=== PATIENT | male | born 1980 | race American Indian/Alaskan Native ===

== ENCOUNTER 2017-03-30 18:15 | Emergency (ER) | payer SELFPAY ==
[2017-03-30] MEDS ORDERED: MOTRIN PO ONE (18:54)
--- NOTE | 2017-03-30 18:57 | Emergency Department Report ---
Chief Complaint: Fever Stated Complaint: BODY PAIN/WEAKNESS Time Seen by Provider: 03/30/17 18:52 - HPI History of Present Illness: PT c/o bodyaches that started today. PT c/o L testicle discomfort x 1-2 weeks - ROS Review of Systems: pt found to be febrile in triage pt denies Scrotal swelling pt denies dysuria + vomiting x 1 + bodyaches - Exam Physical Exam: pt looks well, non toxic. pt is febrile. abd is soft and not tender no cva tenderness adria MSE screening note: Focused history and physical exam performed. Due to findings the following was ordered: meds, labs ED Disposition for MSE Condition: Stable
[2017-03-30 19:50] LABS: Hematocrit 48.8 % (35.5-45.6); Hemoglobin 16.3 gm/dl (11.8-15.2); Mean Corpuscular HGB Conc 33 % (32-34); Mean Corpuscular Hemoglobin 31 pg (28-32); Mean Corpuscular Volume 91 fl (84-94); Platelet Count 171 K/mm3 (140-440); Red Blood Count 5.36 M/mm3 (3.65-5.03); Red Cell Distribution Width 13.6 % (13.2-15.2); White Blood Count 16.8 K/mm3 (4.5-11.0)
[2017-03-30 20:05] LABS: Alanine Aminotransferase 24 units/L (7-56); Albumin 4.6 g/dL (3.9-5); Albumin/Globulin Ratio 1.4 %; Alkaline Phosphatase 57 units/L (35-129); Anion Gap 20 mmol/L; BUN/Creatinine Ratio 18.57; Blood Urea Nitrogen 26 mg/dL (9-20); Calcium 9.3 mg/dL (8.4-10.2); Carbon Dioxide 27 mmol/L (22-30); Chloride 97.6 mmol/L (98-107); Glucose 130 mg/dL (75-100); Potassium 3.5 mmol/L (3.6-5.0); Sodium 141 mmol/L (137-145)
[2017-03-30 20:33] LABS: Basophils % (Manual) 0 % (0.0-1.8); Blastocytes % (Manual) 0 %; Eosinophils % (Manual) 0 % (0.0-4.3)
[2017-03-30 20:34] LABS: Anisocytosis Few; Diff Status Complete; Poikilocytosis Few
[2017-03-30 22:23] LABS: Bilirubin,Urine NEG (Negative); Blood,Urine NEG (Negative); Ketones,Urine NEG (Negative); Leukocyte Esterase,Urine NEG (Negative); Mucus,Urine 2+ /HPF; Nitrite,Urine NEG (Negative); Protein,Urine <15 mg/dL mg/dL (Negative); WBC,Urine < 1.0 /HPF (0.0-6.0)
--- NOTE | 2017-03-31 01:23 | Ultrasound Report ---
FINAL REPORT PROCEDURE: US TESTICULAR DOPPLER COMP TECHNIQUE: Real-time powers-scale and color flow Doppler sonography in multiple planes of the scrotum, testicles, and epididymes was performed. Velocity spectral waveform analysis Doppler imaging of the arterial inflow and venous outflow of the testicles was performed with image documentation. CPT 77261 and 82575 HISTORY: left testicular pain COMPARISON: No prior studies are available for comparison. FINDINGS: RIGHT TESTICLE: Size: 4.5 x 2.9 x 3.1 cm . Appearance: Within the superior medial aspect of the right testicle there is some mixed echogenicity. A mass in this region is suspected. This measures 19 x 13 by 39 millimeters. The remaining right testicular echogenicity is normal.. Arterial blood flow: Normal spectral waveforms, flow velocities and color flow images.. Venous blood flow: Normal spectral waveforms and color flow images. Right epididymis: Normal size and echotexture . Hydrocele: None . LEFT TESTICLE Size: 5.1 x 2.6 x 3 cm . Appearance: Normal size and echotexture . Arterial blood flow: Normal spectral waveforms, flow velocities and color flow images.. Venous blood flow: Normal spectral waveforms and color flow images. Leftepididymis: Normal size and echotexture . Hydrocele: None . IMPRESSION: There is a mixed echogenic region in the superior medial aspect of the right testicle consistent with a mass, this measures 19 x 13 by 39 millimeters. The differential is extensive and further workup with specialty consultation should be obtained. The testicles have normal size with appropriate blood flow. The left testicle has a normal echogenicity. The above findings are discussed with the patient's ER provider Dr. Salgado, at the time of dictation 0017 central standard time on 03/31/2017
[2017-03-31] MEDS ORDERED: TYLENOL PO ONE (01:52)
--- NOTE | 2017-03-31 01:52 | Emergency Department Report ---
HPI - General Chief Complaint: Abdominal Pain Time Seen by Provider: 03/30/17 18:52 - HPI HPI: This is a 36-year-old -[place] male who presents to the emergency department with complaint of a 2 week history of some testicular pain. He denies any dysuria, hematuria, penile discharge, back pain, fever but he did have some nausea with 2 episodes of vomiting today. He has not taken anything for symptoms prior to presentation. He denies any past medical history. He does not have a primary care physician. No recent travel or sick contacts at home. ED Past Medical Hx - Past Medical History Previous Medical History?: No - Surgical History Past Surgical History?: Yes Additional Surgical History: right big toe - Social History Smoking Status: Current Every Day Smoker Substance Use Type: Alcohol - Medications Home Medications: Home Medications Medication Instructions Recorded Confirmed Last Taken Type Acetaminophen/Codeine [Tylenol #3] 1 tab PO Q6H PRN #20 tab 10/26/15 Unknown Rx Cyclobenzaprine [Flexeril] 10 mg PO TID PRN #30 tablet 10/26/15 Unknown Rx Ibuprofen [Motrin] 600 mg PO Q8H PRN #50 tablet 10/26/15 Unknown Rx HYDROcodone/APAP 5-325 [[place] 1 each PO Q6HR PRN #12 tablet 03/31/17 Unknown Rx 5/325] ED Review of Systems ROS: Stated complaint: BODY PAIN/WEAKNESS Other details as noted in HPI Comment: All other systems reviewed and negative Constitutional: denies: chills, fever Eyes: denies: eye pain, eye discharge, vision change ENT: denies: ear pain, throat pain Respiratory: denies: cough, shortness of breath, wheezing Cardiovascular: denies: chest pain, palpitations Gastrointestinal: nausea, vomiting Genitourinary: testicular pain. denies: dysuria Musculoskeletal: denies: back pain, joint swelling, arthralgia Skin: denies: rash, lesions Neurological: denies: headache, weakness, paresthesias Physical Exam - Physical Exam Vital Signs: Vital Signs 03/30/17 03/30/17 18:55 23:01 Temperature 100.9 F H 100.5 F H Pulse Rate 93 H 80 Respiratory 16 18 Rate Blood Pressure 143/107 Blood Pressure 154/99 [Right] O2 Sat by Pulse 99 100 Oximetry Physical Exam: GENERAL: The patient is well-developed well-nourished. HEENT: Normocephalic. Atraumatic. Extraocular motions are intact. Patient has moist mucous membranes. NECK: Supple. Trachea is midline. CHEST/LUNGS: Clear to auscultation. There is no respiratory distress noted. HEART/CARDIOVASCULAR: Regular. There is no tachycardia. There is no gallop rub or murmur. ABDOMEN: Abdomen is soft, nontender. Patient has normal bowel sounds. There is no abdominal distention. SKIN: Skin is warm and dry. NEURO: The patient is awake, alert, and oriented. The patient is cooperative. The patient has no focal neurologic deficits. The patient has normal speech. MUSCULOSKELETAL: There is no tenderness or deformity. There is no limitation range of motion. There is no evidence of acute injury. : Normal-appearing penis and scrotum and testicles. Unable to reproduce left testicular pain to palpation. ED Course Vital Signs 03/30/17 03/30/17 18:55 23:01 Temperature 100.9 F H 100.5 F H Pulse Rate 93 H 80 Respiratory 16 18 Rate Blood Pressure 143/107 Blood Pressure 154/99 [Right] O2 Sat by Pulse 99 100 Oximetry ED Medical Decision Making - Lab Data Result diagrams: 03/30/17 19:38 03/30/17 19:38 - Radiology Data Radiology results: report reviewed Testicular Doppler ultrasound shows a mixed echogenic region in the superior medial aspect of the right testicle consistent with a mass that measures 19 x 13 x 39 mm. The differential is extensive and further work up with specialty consultation should be obtained. The testicles are normal size with appropriate blood flow. The left Testicle has normal echogenicity. - Medical Decision Making 36-year-old male presents with a two-week history of testicular pain. He did not complain of any fever presented with a low-grade fever. Labs show a leukocytosis but otherwise the rest the labs are unremarkable. Urinalysis does not show any urinary tract infection. Due to his testicular pain and a testicular Doppler ultrasound was done that did not show any signs of torsion but did show some signs of a right testicular mass. The differential is large and the patient will require workup with urology. His fever resolved and his vital signs been stable throughout his ED course. All of the labs and imaging were discussed with the patient and he understands and agrees to the plan. - Differential Diagnosis torsion, testicular mass, urinary tract infection, urethritis, hernia Critical Care Time: No Critical care attestation.: If time is entered above; I have spent that time in minutes in the direct care of this critically ill patient, excluding procedure time. ED Disposition Clinical Impression: Testicular mass Disposition: DC- TO HOME OR SELFCARE Is pt being admited?: No Condition: Stable Instructions: Testicle Pain (ED) Additional Instructions: Please follow-up with a urologist as soon as possible for further evaluation of your testicular mass. Return to the emergency department with any worsening of your symptoms or any acute distress. I have given you a referral for a local urologist, Dr. Sol. You've been prescribed a medication that is sedating. Therefore this medication cannot be mixed with alcohol, or taken prior to driving, working, or being responsible for children. Prescriptions: HYDROcodone/APAP 5-325 [S [place] 5/325] 1 each PO Q6HR PRN #12 tablet PRN Reason: Pain Referrals: PRIMARY CAREMD [Primary Care Provider] - 3-5 Days DONOVAN SOL MD [Staff Physician] - 3-5 Days Forms: Work/School Release Form(ED) Time of Disposition: 02:31
[2017-03-31 02:00] VITALS: BP 129/79
== END 2017-03-31 02:48 | disposition home or self-care (01) ==
LOC: ED 18:15
DX: N50.9 Disorder of male genital organs, unspecified (principal); F17.200 Nicotine dependence, unspecified, uncomplicated
CPT/HCPCS: 36415; 80053; 81001; 85007; 85025; 93975

== ENCOUNTER 2018-07-12 08:18 | Emergency (ER) | payer SELFPAY ==
[2018-07-12 08:57] VITALS: BP 151/87
[2018-07-12] MEDS ORDERED: CLEOCIN PO ONE (13:10)
[2018-07-12] MEDS ORDERED: MOTRIN PO ONE (13:10)
--- NOTE | 2018-07-12 13:10 | Emergency Department Report ---
HPI - General Chief Complaint: Sore Throat Time Seen by Provider: 07/12/18 13:08 - HPI HPI: This is a 38-year-old male here report that he is having sore throat 1 week. Denies any drooling. Report fever and chills. Denies any cough, nasal congestion or runny nose. Denies any chest pain or shortness of breath. He states that he took [id number] Tylenol without any relief. Reports some nausea without any vomiting. Denies any abdominal pain or back pain. Denies any urinary symptoms .pain is 6 out of 10 achy worse with swallowing and no alleviating factors. ED Past Medical Hx - Past Medical History Previous Medical History?: No - Surgical History Past Surgical History?: Yes Additional Surgical History: right big toe - Family History Family history: hypertension - Social History Smoking Status: Current Every Day Smoker Substance Use Type: Alcohol, Marijuana - Medications Home Medications: Home Medications Medication Instructions Recorded Confirmed Last Taken Type Acetaminophen/Codeine [Tylenol #3] 1 tab PO Q6H PRN #20 tab 10/26/15 Unknown Rx Cyclobenzaprine [Flexeril] 10 mg PO TID PRN #30 tablet 10/26/15 Unknown Rx Ibuprofen [Motrin] 600 mg PO Q8H PRN #50 tablet 10/26/15 Unknown Rx HYDROcodone/APAP 5-325 [[place] 1 each PO Q6HR PRN #12 tablet 03/31/17 Unknown Rx 5/325] Clindamycin [Clindamycin CAP] 300 mg PO Q8H 10 Days #30 cap 07/12/18 Unknown Rx Ibuprofen [Motrin] 800 mg PO Q8HR PRN #15 tablet 07/12/18 Unknown Rx ED Review of Systems ROS: Stated complaint: SORE THROAT Other details as noted in HPI Constitutional: chills, fever Eyes: denies: eye pain, eye discharge, vision change ENT: throat pain. denies: ear pain, dental pain, congestion Respiratory: denies: cough, shortness of breath, SOB with exertion, SOB at rest , stridor, wheezing Cardiovascular: denies: chest pain, palpitations, edema, syncope Gastrointestinal: denies: nausea, vomiting, diarrhea Musculoskeletal: denies: back pain, joint swelling, arthralgia, myalgia Skin: denies: rash, lesions Neurological: denies: headache Psychiatric: denies: depression Physical Exam - Physical Exam Vital Signs: Vital Signs 07/12/18 08:55 Temperature 99.6 F Pulse Rate 83 Respiratory 16 Rate Blood Pressure 151/87 O2 Sat by Pulse 98 Oximetry General: This is a 38-year-old female well-nourished well-developed in no acute distress. Physical Exam: Head: Normocephalic atraumatic Ears:BIateral TM pearly powers . Greyson EAC with normal exam. No mastoid bone tenderness. Mouth: Moist, positive pharyngeal erythema or exudate . Minimal tonsillar erythema bilaterally at +1 Tongue is normal and oral airways patent. Uvula is midline. No FIRE BATTALION CHIEF . Neck: Nontender to palpate, supple, normal range of motion. Positive lateral cervical ,anterior adenopathy. No c-spine tenderness. Nose: Bilateral nasal mucosa normal exam maxillary and frontal sinuses non- tender to palpate. Eyes: Bilateral Sclerae and conjunctiva without injection. Bilateral pupils equal and reactive to light. Bilateral lids are normal. Normal accommodation.BEOMI Lungs: Clear to auscultate bilaterally, no rhonchi wheezes or rales. Normal work of breathing and no chest wall tenderness CV: S1, S2. Regular rate and rhythm negative murmur. Capillary refill is less than 3 seconds Abdomen: Nontender to palpation in all quadrants: No guarding or rebound tenderness. Positive bowel sounds in all quadrants Extremity: No clubbing, cyanosis or edema. +2 pulses in all extremities and no neurovascular compromise Skin: Clean, Dry and intact no rash or lesions ED Course Vital Signs 07/12/18 08:55 Temperature 99.6 F Pulse Rate 83 Respiratory 16 Rate Blood Pressure 151/87 O2 Sat by Pulse 98 Oximetry - Reevaluation(s) Reevaluation #1: 07/12/18 13:17 She received clindamycin 600 mg by mouth in emergency room and Motrin 800 mg by mouth for sore throats, exudative pharyngitis. ED Medical Decision Making - Medical Decision Making This is a 38-year-old male well-nourished well-developed here for sore throat and fever. Based on [facility] criteria patient with exudative pharyngitis, he has exudative oropharynx, fever, nausea, sore throat, cervical lymphadenopathy with absent of cough. Assessment/plan 1: Exudative pharyngitis-patient given clindamycin 600 mg by mouth and will be discharged home and clindamycin and given good Rx prescription card with instruction. 2: Fever in adult-99.6. Motrin 800 mg by mouth and will be discharged home in Motrin. Pt diagnosis and treatment plan and he voiced understanding. Prescription given for Motrin and clindamycin and I discussed with him to follow up with [facility] in 2-3 days as he does not have a primary care physician. I also discussed him that he needs to return to the emergency room if his symptoms worsen and he voiced understanding. Patient is feeling better. Pain is controlled. - Differential Diagnosis FIRE BATTALION CHIEF, strep throat, allergic rhinitis, viral pharyngitis Critical care attestation.: If time is entered above; I have spent that time in minutes in the direct care of this critically ill patient, excluding procedure time. ED Disposition Clinical Impression: Fever in adult, Exudative pharyngitis Disposition: TO HOME OR SELFCARE Is pt being admited?: No Does the pt Need Aspirin: No Condition: Stable Instructions: Strep Throat (ED), Fever in Adults (ED) Additional Instructions: Please take antibiotic as prescribed Follow-up with primary care physician in 2-3 days If your condition worsens to include difficulty breathing, swallowing, chest pain, nausea and vomiting and fever, please return to the emergency room JODIE. Take Motrin for fever and her sore throat. Increasing fluid intake use good Rx prescription card as instructed Referrals: PRIMARY CARE, [Primary Care Provider] - 2-[address] [facility] [Outside] - 2-3 Days Forms: Work/School Release Form(ED)
== END 2018-07-12 14:26 | disposition home or self-care (01) ==
LOC: ED 08:18
DX: J02.9 Acute pharyngitis, unspecified (principal); F17.200 Nicotine dependence, unspecified, uncomplicated; F12.10 Cannabis abuse, uncomplicated
CPT/HCPCS: 99282